=== PATIENT | female | born 1990 | race Caucasian/White ===

== ENCOUNTER 2017-05-28 21:40 | Emergency (ER) | payer BC, OTHER ==
[2017-05-28 22:03] LABS: BILIRUBIN,URINE SMALL (NEG); GLUCOSE,URINE NEGATIVE (NEG); NITRITE,URINE NEGATIVE (NEG); PH,URINE 5.5; PROTEIN,URINE NEGATIVE (NEG-TRACE); UROBILINOGEN,URINE 0.2 mg/dL (0.2 mg/dL)
[2017-05-28 22:03] LABS: URINE HCG POC HCG NEGATIVE (Negative)
[2017-05-28 22:04] LABS: HEMATOCRIT 48.3 % (36.0-47.0); HEMOGLOBIN 15.9 g/dL (12.0-15.5); MEAN CORPUSCULAR HEMOGLOBIN 29 pg (25-35); MEAN CORPUSCULAR HGB CONC 33 g/dL (31-37); MEAN CORPUSCULAR VOLUME 89 fL (79-100); PLATELET COUNT 399 x10^3/uL (140-400); RED BLOOD COUNT 5.43 x10^6/uL (3.50-5.40); RED CELL DISTRIBUTION WIDTH 13.6 % (11.5-14.5); WHITE BLOOD COUNT 18.6 x10^3/uL (4.0-11.0)
[2017-05-28] MEDS: FAMOTIDINE 20 MG/2 ML VIAL IVP (22:05)
[2017-05-28] MEDS: METOCLOPRAMIDE HCL 10 MG/2 ML VIAL. IV (22:05)
[2017-05-28] MEDS: IV NORMAL SALINE 1000ML BAG 1,000 ML IV (22:05)
[2017-05-28] MEDS: diphenhydrAMINE 50 MG/ML VIAL IVP (22:06)
[2017-05-28 22:15] LABS: BACTERIA,URINE MOD /HPF (0-FEW); SQUAMOUS EPITHELIAL CELL,UR FEW /LPF; WBC,URINE >40 /HPF (0-4)
[2017-05-28 22:24] LABS: ANION GAP 14 (6-14); BLOOD UREA NITROGEN 16 mg/dL (7-20); BUN/CREATININE RATIO 18 (6-20); CALCIUM 8.6 mg/dL (8.5-10.1); CARBON DIOXIDE 19 mmol/L (21-32); CHLORIDE 105 mmol/L (98-107); CREATININE 0.9 mg/dL (0.6-1.0); GFR 74.6; GLUCOSE 109 mg/dL (70-99); POTASSIUM 4.1 mmol/L (3.5-5.1); SODIUM 138 mmol/L (136-145)
[2017-05-28 22:29] LABS: ALBUMIN 4.1 g/dL (3.4-5.0); ALK PHOS 78 U/L (46-116); ALT (SGPT) 24 U/L (14-59); AST (SGOT) 16 U/L (15-37); TOTAL BILIRUBIN 0.6 mg/dL (0.2-1.0); TOTAL PROTEIN 8.2 g/dL (6.4-8.2)
== END 2017-05-28 23:40 | disposition home or self-care (01) ==
LOC: ER 21:40
DX: N39.0 Urinary tract infection, site not specified (principal)
CPT/HCPCS: 36415; 80053; 81001; 81025; 83690; 85027; 96361; 96365; 96375; 99284-25; J0690; J1200; J2765; J7030; S0028

== ENCOUNTER 2020-02-21 15:03 | Emergency (ER) | payer BC ==
[~2020-02-21] VITALS: Ht 162.6 cm; Wt 109.0 kg
[~2020-02-21 15:03] MED LIST: NITR100C62 PO; ONDA4TAB10 SL
[2020-02-21] MEDS ORDERED: ONDANSETRON PF 4 MG/2 ML VIAL. IVP ONE (15:45)
[2020-02-21] MEDS ORDERED: IV NORMAL SALINE 1000ML BAG 1,000 ML IV ONE (15:45)
[2020-02-21] MEDS ORDERED: KETOROLAC 15 MG/ML VIAL. IVP ONE (15:45)
--- NOTE | 2020-02-21 15:46 | PHYS DOC ---
Past Medical History Past Medical History: Kidney Stone Past Surgical History: Other Additional Past Surgical Histo: breast reduction at age 13 Smoking Status: Never Smoker Alcohol Use: None Drug Use: None General Adult EDM: Chief Complaint: FLANK PAIN HPI: HPI: The history was obtained from the patient. Patient is a 30-year-old female with PMH notable for kidney stone who presents with a chief complaint of left flank pain. Patient states the pain began when she woke up this morning. States it is difficult to find a position of comfort. States pain is aching in nature nonradiating. Denies any midline low back pain. Denies any dysuria, hematuria, or increased urge to void. Denies vaginal bleeding or discharge. States first that her last menstrual period 2 weeks ago. Denies chest pain, cough, shortness of breath, or fever. Denies syncope. Denies any painful intercourse. She tried ibuprofen approximately 5 hours prior to arrival with initial relief within the pain came back worse. 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 Denies any recent overuse or injuries. No other complaints. Patient denies any urinary retention, stool incontinence, saddle anesthesia, history of IV drug use, or history of cancer. Review of Systems: Review of Systems: Constitutional: Denies fever or chills. [] Eyes: Denies change in visual acuity. [] HENT: Denies nasal congestion or sore throat. [] Respiratory: Denies cough or shortness of breath. [] Cardiovascular: Denies chest pain or edema. [] GI: Positive for flank pain : Denies dysuria. [] Musculoskeletal: Denies back pain or joint pain. [] Integument: Denies rash. [] Neurologic: Denies headache, focal weakness or sensory changes. [] Endocrine: Denies polyuria or polydipsia. [] Lymphatic: Denies swollen glands. [] Psychiatric: Denies depression or anxiety. [] Heart Score: Risk Factors: Risk Factors: DM, Current or recent (<one month) smoker, HTN, HLP, family history of CAD, obesity. Risk Scores: Score 0 - 3: 2.5% MACE over next 6 weeks - Discharge Home Score 4 - 6: 20.3% MACE over next 6 weeks - Admit for Clinical Observation Score 7 - 10: 72.7% MACE over next 6 weeks - Early Invasive Strategies Allergies: Allergies: Allergies Coded Allergies Type Severity Reaction Last Updated Verified No Known Drug Allergies 01/24/14 No Physical Exam: PE: Constitutional: Well developed, well nourished, no acute distress, non-toxic appearance. [] HENT: Normocephalic, atraumatic, bilateral external ears normal, oropharynx moist, no oral exudates, nose normal. [] Eyes: PERRLA, EOMI, conjunctiva normal, no discharge. [] Neck: Normal range of motion, no tenderness, supple, no stridor. [] Cardiovascular:Heart rate regular rhythm, no murmur [] Lungs & Thorax: Bilateral breath sounds clear to auscultation [] Abdomen: Soft, nontender, nonacute abdomen. No involuntary guarding or rigidity noted. No acute peritonitis. : Mild left CVA tenderness Skin: Warm, dry, no erythema, no rash. [] Back: No tenderness, no CVA tenderness. [] + 5/5 motor strength in dorsiflexion and plantarflexion of the great toes bilaterally. Sensation intact between the webbing of the first and second toes bilaterally. Extremities: No tenderness, no cyanosis, no clubbing, ROM intact, no edema. [] Neurologic: Alert and oriented X 3, normal motor function, normal sensory function, no focal deficits noted. [] Psychologic: Affect normal, judgement normal, mood normal. [] Current Patient Data: Labs: Laboratory Tests Test 02/21/20 15:30 02/21/20 15:31 02/21/20 15:41 Urine Collection Type Unknown Urine Color Yellow Urine Clarity Clear Urine pH 5.0 Urine Specific [place] >=1.030 Urine Protein Negative mg/dL Urine Glucose (UA) Negative mg/dL Urine Ketones (Stick) Negative mg/dL Urine Blood Large Urine Nitrite Negative Urine Bilirubin Negative Urine Urobilinogen Dipstick 0.2 mg/dL Urine Leukocyte Esterase Negative Urine RBC 6-10 /HPF Urine WBC Occ /HPF Urine Squamous Epithelial Cells Mod /LPF Urine Bacteria Moderate /HPF Urine Mucus Marked /LPF Bedside Urine HCG, Qualitative Hcg negative White Blood Count 12.1 x10^3/uL Red Blood Count 4.63 x10^6/uL Hemoglobin 13.2 g/dL Hematocrit 39.3 % Mean Corpuscular Volume 85 fL Mean Corpuscular Hemoglobin 29 pg Mean Corpuscular Hemoglobin Concent 34 g/dL Red Cell Distribution Width 14.0 % Platelet Count 391 x10^3/uL Neutrophils (%) (Auto) 81 % Lymphocytes (%) (Auto) 13 % Monocytes (%) (Auto) 6 % Eosinophils (%) (Auto) 0 % Basophils (%) (Auto) 1 % Neutrophils # (Auto) 9.8 x10^3/uL Lymphocytes # (Auto) 1.6 x10^3/uL Monocytes # (Auto) 0.7 x10^3/uL Eosinophils # (Auto) 0.0 x10^3/uL Basophils # (Auto) 0.1 x10^3/uL Sodium Level 140 mmol/L Potassium Level 3.9 mmol/L Chloride Level 105 mmol/L Carbon Dioxide Level 25 mmol/L Anion Gap 10 Blood Urea Nitrogen 18 mg/dL Creatinine 1.1 mg/dL Estimated GFR (Cockcroft-Gault) 57.9 BUN/Creatinine Ratio 16 Glucose Level 106 mg/dL Calcium Level 8.9 mg/dL Total Bilirubin 0.5 mg/dL Aspartate Amino Transf (AST/SGOT) 17 U/L Alanine Aminotransferase (ALT/SGPT) 32 U/L Alkaline Phosphatase 85 U/L Total Protein 7.6 g/dL Albumin 3.6 g/dL Albumin/Globulin Ratio 0.9 Lipase 122 U/L Current Medications Medications (Trade) Dose Ordered Sig/Luz Route PRN Reason Start Time Stop Time Status Last Admin Dose Admin Sodium Chloride 1,000 ml @ 1,000 mls/hr 1X ONCE IV 02/21/20 15:45 02/21/20 16:44 02/21/20 16:08 Ketorolac Tromethamine (Toradol 15mg Vial) 15 mg 1X ONCE IVP 02/21/20 15:45 02/21/20 16:05 DC 02/21/20 16:08 Ondansetron HCl (Zofran) 4 mg 1X ONCE IVP 02/21/20 15:45 02/21/20 16:05 DC 02/21/20 16:08 Cephalexin HCl (Keflex) 1,000 mg 1X ONCE PO 02/21/20 16:30 02/21/20 16:31 DC Laboratory Tests Test 02/21/20 15:31 POC Urine HCG, Qualitative Hcg negative (Negative) Vital Signs: Vital Signs Date Time Temp Pulse Resp B/P (MAP) Pulse Ox O2 Delivery O2 Flow Rate FiO2 02/21/20 15:18 97.3 84 22 148/79 (102) 98 Room Air 97.3 EKG: EKG: [] Radiology/Procedures: Radiology/Procedures: [facility] [address] [place] [address] IMAGING REPORT Signed PATIENT: ERIK MINER MACCOUNT: [id number] : 1990 LOCATION: ER AGE: 30 SEX: F EXAM STATUS: PRE ER ORD. PHYSICIAN: LEILA DICKINSON DO REASON: L flank pain PROCEDURE: CT ABDOMEN PELVIS WO CONTRAST CT scan abdomen and pelvis without contrast 02/21/2020 CLINICAL HISTORY: Left flank pain. TECHNIQUE: Unenhanced, contiguous, 2 mm axial sections were obtained through the abdomen and pelvis. One or more of the following individualized dose reduction techniques were utilized for this study: 1. Automated exposure control. 2. Adjustment of the mA and/or kV according to patient size. 3. Use of iterative reconstruction technique. FINDINGS: Comparison study is dated 06/11/2014. Images through the lung bases demonstrate minimal dependent subsegmental atelectasis bilaterally. The liver parenchyma has a decreased attenuation consistent with fatty infiltration. The spleen, pancreas and adrenal glands are within normal limits. Mild dilatation of the left intrarenal collecting system is seen. Increased density is seen within the fat surrounding the left kidney. The left ureter is dilated throughout the majority of its course. Within the distal left ureter, a 2.5 mm distal left ureteral calculus is seen. This is 1 cm lateral to the expected location of the left UVJ. It is causing mild obstruction of the left collecting system. A 1 mm nonobstructing calculus involving the midpole of the right kidney. There is no evidence of obstruction of the right collecting system. The abdominal aorta tapers normally. The gallbladder is well-distended. No free fluid or free air is seen within the abdomen. There is no evidence of bowel obstruction. The appendix is well-visualized and is within normal limits. Images through the pelvis demonstrate the urinary bladder to be contracted. No free fluid is seen. No adnexal mass is noted. Very mild S-shaped curvature of the thoracolumbar spine is seen. IMPRESSION: 2.5 mm distal left ureteral calculus is seen which is causing mild obstruction of the left collecting system. Electronically signed by: Kodi Doan MD (02/21/2020 4:20 PM) [id number] DICTATED and SIGNED BY: KODI DONA MD DATE: 02/21/20 1620 [] Course & Med Decision Making: Course & Med Decision Making Pertinent Labs and Imaging studies reviewed. (See chart for details) [] Patient is a 30-year-old female who presents with chief complaint of acute onset left flank pain earlier this morning. Initial vital signs unremarkable. Exam noted above. CT imaging does reveal a 2.5 mm left-sided kidney stone. Stone noted to be at the level of the UVJ. Urinalysis does show some bacteria. Creatinine 1.1. Remainder of labs unremarkable. On repeat assessment patient's pain is well controlled. I do feel overall she is appropriate for discharge home. Although she does have very mild elevation of her creatinine she is tolerating fluids without difficulty. Furthermore she denies any urinary symptoms so I have low suspicion for infected kidney stone. She may have some bacteria in her urine and given her current kidney stone antibiotics will be given. Patient will be discharged home with Flomax, ibuprofen, Zofran, and Keflex. She will given referral to urologist. Return precautions discussed and understood. Patient stable for discharge home. Donovan Disclaimer: Donovan Disclaimer: This electronic medical record was generated, in whole or in part, using a voice recognition dictation system. Departure Departure Impression: Primary Impression: Kidney stone Disposition: 01 HOME, SELF-CARE Condition: STABLE Referrals: JESUS OLSON DO (PCP) Patient Instructions: Kidney Stones Additional Instructions: Dr. Marcellus Johnson [facility] [address] [place] [address] Call [facility] [phone] [facility] [address] [place] [address] [facility] [address] [place] [address] [place] [address] [facility] [address] [address] [facility] [address] [place] [address] [facility] [address] [place] [address] [facility] [address] [place] [address] [facility] [address] [place] [address] [facility] [address] [place] [address] [facility] [address] [place] [address] Scripts Cephalexin (KEFLEX) 500 Mg Capsule 1 CAP PO BID for 7 Days, #14 CAP 0 Refills Prov: LEILA DICKINSON DO 02/21/20 Tamsulosin Hcl (FLOMAX) 0.4 Mg Cap.er.24h 1 CAP PO QHS, #7 CAP 11 Refills Prov: LEILA DICKINSON DO 02/21/20 Ibuprofen (IBUPROFEN) 600 Mg Tablet 600 MG PO PRN Q6HRS PRN for PAIN, #20 TAB take with food or milk Prov: LELIA DICKINSON DO 02/21/20 Ondansetron Hcl (ZOFRAN) 4 Mg Tablet 4 MG PO PRN TID PRN for NAUSEA/VOMITING, #9 nausea/vomiting Prov: LEILA DICKINSON DO 02/21/20 Justicifation of Admission Dx: Justifications for Admission: Justification of Admission Dx: N/A LEILA DICKINSON DO Feb 21, 2020 15:46
[2020-02-21 15:48] LABS: BASO # 0.1 x10^3/uL (0.0-0.2); BASO % 1 % (0-3); EOS % 0 % (0-3); HEMATOCRIT 39.3 % (36.0-47.0); HEMOGLOBIN 13.2 g/dL (12.0-15.5); LYMPH # 1.6 x10^3/uL (1.0-4.8); LYMPH % 13 % (24-48); MEAN CORPUSCULAR HEMOGLOBIN 29 pg (25-35); MEAN CORPUSCULAR HGB CONC 34 g/dL (31-37); MEAN CORPUSCULAR VOLUME 85 fL (79-100); MONO # 0.7 x10^3/uL (0.0-1.1); MONO % 6 % (0-9); NEUT # 9.8 x10^3/uL (1.8-7.7); NEUT % 81 % (31-73); PLATELET COUNT 391 x10^3/uL (140-400); RED BLOOD COUNT 4.63 x10^6/uL (3.50-5.40); WHITE BLOOD COUNT 12.1 x10^3/uL (4.0-11.0)
[2020-02-21 15:51] LABS: BILIRUBIN,URINE NEGATIVE (NEG); CLARITY,URINE CLEAR; COLOR,URINE YELLOW; NITRITE,URINE NEGATIVE (NEG); PROTEIN,URINE NEGATIVE (NEG-TRACE); UROBILINOGEN,URINE 0.2 mg/dL (0.2 mg/dL)
[2020-02-21 15:55] LABS: SQUAMOUS EPITHELIAL CELL,UR MOD /LPF
[2020-02-21 15:56] LABS: BACTERIA,URINE MODERATE /HPF (0-FEW)
[2020-02-21 15:57] LABS: WBC,URINE OCC /HPF (0-4)
[2020-02-21 16:01] LABS: CALCIUM 8.9 mg/dL (8.5-10.1); CREATININE 1.1 mg/dL (0.6-1.0); GFR 57.9; POTASSIUM 3.9 mmol/L (3.5-5.1)
[2020-02-21 16:07] LABS: ALBUMIN 3.6 g/dL (3.4-5.0); ALBUMIN/GLOBULIN RATIO 0.9 (1.0-1.7); TOTAL BILIRUBIN 0.5 mg/dL (0.2-1.0); TOTAL PROTEIN 7.6 g/dL (6.4-8.2)
--- NOTE | 2020-02-21 16:22 | RAD ---
CT scan abdomen and pelvis without contrast 02/21/2020 CLINICAL HISTORY: Left flank pain. TECHNIQUE: Unenhanced, contiguous, 2 mm axial sections were obtained through the abdomen and pelvis. One or more of the following individualized dose reduction techniques were utilized for this study: 1. Automated exposure control. 2. Adjustment of the mA and/or kV according to patient size. 3. Use of iterative reconstruction technique. FINDINGS: Comparison study is dated 06/11/2014. Images through the lung bases demonstrate minimal dependent subsegmental atelectasis bilaterally. The liver parenchyma has a decreased attenuation consistent with fatty infiltration. The spleen, pancreas and adrenal glands are within normal limits. Mild dilatation of the left intrarenal collecting system is seen. Increased density is seen within the fat surrounding the left kidney. The left ureter is dilated throughout the majority of its course. Within the distal left ureter, a 2.5 mm distal left ureteral calculus is seen. This is 1 cm lateral to the expected location of the left UVJ. It is causing mild obstruction of the left collecting system. A 1 mm nonobstructing calculus involving the midpole of the right kidney. There is no evidence of obstruction of the right collecting system. The abdominal aorta tapers normally. The gallbladder is well-distended. No free fluid or free air is seen within the abdomen. There is no evidence of bowel obstruction. The appendix is well-visualized and is within normal limits. Images through the pelvis demonstrate the urinary bladder to be contracted. No free fluid is seen. No adnexal mass is noted. Very mild S-shaped curvature of the thoracolumbar spine is seen. IMPRESSION: 2.5 mm distal left ureteral calculus is seen which is causing mild obstruction of the left collecting system. Electronically signed by: Kodi Doan MD (02/21/2020 4:20 PM) [id number]
[2020-02-21] MEDS ORDERED: CEPHALEXIN 250 MG CAPSULE. PO ONE (16:30)
[2020-02-21 16:38] VITALS: BP 121/78
[2020-02-21] MEDS ORDERED: TAMS0.4C97 PO (16:42)
[2020-02-21] MEDS ORDERED: IBUP-1007 PO (16:42)
[2020-02-21] MEDS ORDERED: ONDA4TAB7 PO (16:42)
[2020-02-21] MEDS ORDERED: CEPH-264 PO (16:42)
== END 2020-02-21 16:58 | disposition home or self-care (01) ==
LOC: ER 15:03
DX: N20.0 Calculus of kidney (principal); R20.0 Anesthesia of skin; M54.2 Cervicalgia; R10.9 Unspecified abdominal pain; Z98.890 Other specified postprocedural states
CPT/HCPCS: 36415; 74176; 80053; 81001; 81025; 83690; 85025; 87086; 96374; 96375; 99284; J1885; J2405; J7030